=== PATIENT | male | born 1960 | race Caucasian/White ===

== ENCOUNTER → 2019-05-12 | Outpatient (CLI) | payer OTHER ==
[~2019-05-12] MED LIST: REGADENOSON 0.4 MG/5 ML DISP.SYRIN. IV ONE
--- NOTE | 2019-05-12 12:17 | PCVCIMAG ---
APPROVED REPORT Study performed: 05/12/2019 08:11:35 EXAM: Comprehensive 2D, Doppler, and color-flow Echocardiogram Patient Location: Echo lab Status: routine BSA: 2.34 HR: 94 bpmBP: 126/86 mmHg Rhythm: Atrial Fibrillation Other Information Study Quality: Adequate Risk Factors: Cardiac Risk Factors: HTN, Hyperlipidemia Indications Atrial Fibrillation 2D Dimensions IVSd: 11.61 (7-11mm) LVDd: 44.26 mm PWd: 12.31 (7-11mm)Ascending Ao: 36.81 (22-36mm) LVDs: 31.48 (25-40mm) Left Atrium: 46.15 (27-40mm) Aortic Root: 33.70 mm LV Single Plane 4CH: 54.72 % LV Single Plane 2CH: 45.34 % Biplane EF: 49.4 % Volumes Left Atrial Volume (Systole) Single Plane 4CH: 92.90 mLSingle Plane 2CH: 83.85 mL LA ESV Index: 39.00 mL/m2 Aortic Valve AoV Peak Se.: 1.16 m/s AO Peak Gr.: 5.42 mmHgLVOT Max P.96 mmHg LVOT Max V: 0.99 m/s Pulmonary Valve PV Peak Se.: 0.85 m/sPV Peak Gr.: 2.89 mmHg Pulmonary Vein P Vein S: 0.37 m/s P Vein D: 0.49 m/s P Vein S/D Ratio: 0.76 Tricuspid Valve TR Peak Se.: 2.58 m/s TR Peak Gr.: 26.71 mmHg Left Ventricle The left ventricle is normal size. There is normal LV segmental wall motion. Mild concentric left ventricular hypertrophy. Left ventricular systolic function is within lower limits of normal. LVEF is 50%. This study is not technically sufficient to allow evaluation of the LV diastolic function due to atrial fibrillation. Right Ventricle The right ventricle is normal size. The right ventricular systolic function is normal. Atria Left atrium is mildly dilated. Right atrium is mildly dilated. Aortic Valve The aortic valve is normal in structure. No aortic regurgitation is present. There is no aortic valvular stenosis. Mitral Valve The mitral valve is normal in structure. Mild to moderate mitral regurgitation. No evidence of mitral valve stenosis. Tricuspid Valve The tricuspid valve is normal in structure. Mild tricuspid regurgitation with PAP of 34 mmHg. Pulmonic Valve The pulmonary valve is normal in structure. Trace pulmonic regurgitation. Great Vessels The aortic root is normal in size. IVC is normal in size and collapses >50% with inspiration. Pericardium There is no pericardial effusion. There is no pleural effusion. <Conclusion> The left ventricle is normal size. LVEF is 50%. Left atrium is mildly dilated. Right atrium is mildly dilated. The aortic valve is normal in structure. The mitral valve is normal in structure. Mild to moderate mitral regurgitation. The tricuspid valve is normal in structure. Mild tricuspid regurgitation with PAP of 34 mmHg. The pulmonary valve is normal in structure. Trace pulmonic regurgitation. There is no pericardial effusion.
--- NOTE | 2019-05-14 15:04 | PCVCIMAG ---
APPROVED REPORT Imaging Protocol: Rest Tc-99m/Stress Tc-99m 1 day Study performed: 05/12/2019 09:13:42 Indication: Atrial Fibrillation Patient Location: Out-Patient Stress Nurse: Kyra Calderon RN, Indu Guajardo RN AL Tech:Amy Taylorrex [facility] Ht: 5 ft 11 in Wt: 250 lbs BSA: 2.32 m2 HR: 97 bpm BP: 123/96 mmHg BMI: 34.86 Rhythm: Atrial Fibrillation Medical History Medical History: Hyperlipidemia, HTN, Former Smoker Medications: Metoprolol, Lisinopril, Pradaxa Allergies: No known drug allergies Cardiac Risk Factors: Age Pretest Chest Pain Characteristics: No chest pain Meds Held (24 hrs): Metoprolol Resting Data Rest SPECT myocardial perfusion imaging was performed in supine position 45 minutes following the intravenous injection of 10.7 mCi of Tc-99m Sestamibi. Time of rest injection: 0900 Date: 05/12/2019 Administration Route: IV Administration Site: Right AC Pharmacologic Stress Pharmacologic stress test was performed by injecting Regadenoson 0.4 mg IV push over 10-15 seconds immediately followed by the intravenous injection of 33.6 mCi of Tc-99m Sestamibi. Time of stress injection: 1040 Date: 05/12/2019 Administration Route: IV Administration Site: Right AC Gated Stress SPECT was performed 45 minutes after stress injection. The images were gated to evaluate regional wall motion and calculate left ventricular ejection fraction. Stress Test Details Stress Test: Pharmacologic stress was paired with low level exercise. Reason for pharmacologic stress test: Atrial Fibrillation. HRMax Heart Rate (APMHR): 164 bpm Resting HR: 97 bpmTarget HR (85% APMHR): 139 bpm Max HR Achieved: 166 bpm % of APMHR: 101 Recovery HR: 114 bpm BP Resting BP: 123/96 mmHg Max BP: 144/62 mmHg Recovery BP: 147/94 mmHg ECG Resting ECG: Atrial Fibrillation Stress ECG: Atrial Fibrillation Arrhythmia: PVC's Recovery ECG: Atrial Fibrillation Clinical Reason for Termination: Completed protocol Stress Symptoms: Dyspnea, Leg Fatigue Exercise duration: 4 min 00 sec Exercise capacity: 1.6 METs Symptoms resolved with caffeine. Stress ECG Conclusion 1. ADEQUATE RESPONSE TO IV LEXISCAN 2, INADEQUATE HEART RATE FOR ECG DIAGNOSIS Study Data Post stress, the left ventricular ejection was 73%.. SSS: 0 SRS: 0 SDS: 0 TID = 0.95. Perfusion There is a medium area of mildly reduced uptake in the mid and apical segment of the inferolateral wall which is seen on the stress images and normalizes on the resting images. This area thickens and moves normally and is most consistent with ischemia but artifact cannot be excluded. Wall Motion Normal left ventricular wall motion. Nuclear Conclusion ECG Findings: non-diagnostic Clinical Findings: negative for ischemia Nuclear Findings: positive for ischemia Exercise Capacity: not assessed Left Ventricular Function: normal 1. Intemediate risk study based on normalization of an inferolateral wall defect 2. post stress lvef 73% with normal wall motion <Conclusion> 1. ADEQUATE RESPONSE TO IV LEXISCAN 2, INADEQUATE HEART RATE FOR ECG DIAGNOSIS
== END | disposition home or self-care (01) ==
LOC: PCVCIMAG 08:21
PROVIDERS: ATTEND Internal Medicine
DX: I08.1 Rheumatic disorders of both mitral and tricuspid valves (principal); I48.91 Unspecified atrial fibrillation; Z87.891 Personal history of nicotine dependence
CPT/HCPCS: 78452; 93017; 93306; A9500; J2785